=== PATIENT | female | born 1985 | race Native Hawaiian/Other Pacific Islander ===

== ENCOUNTER 2022-08-17 02:16 | Emergency (ER) | payer BC ==
[~2022-08-17] VITALS: Ht 172.7 cm; Wt 86.2 kg
[2022-08-17 02:16] VITALS: TEMP 98.9
[2022-08-17 03:03] LABS: PLATELET COUNT 248 K/uL (152-353)
[2022-08-17 03:14] LABS: POTASSIUM 3.5 mmol/L (3.6-5.2)
[2022-08-17 04:30] VITALS: BP 132/79
== END 2022-08-17 04:30 | disposition home or self-care (01) ==
LOC: ED 02:16
PROVIDERS: Emergency Medicine
DX: F41.8 Other specified anxiety disorders (principal); Z20.822 Contact with and (suspected) exposure to COVID-19
CPT/HCPCS: 36415; 80053; 80307; 81002; 81025; 85027; 87502; 87635; 99283; U0003